=== PATIENT | male | born 1970 | race Caucasian/White ===

== ENCOUNTER 2022-03-23 14:04 | Emergency (ER) | payer BC, MEDICARE ==
[~2022-03-23] VITALS: Ht 162.6 cm; Wt 63.6 kg
[2022-03-23 14:12] VITALS: BP 142/97
[2022-03-23] MEDS ORDERED: TETanus/Pertussis (Acell)/Diphther VAC/PF (Tdap-Adult) 0.5ml syringe IMVAC ONE (15:30)
[2022-03-23] MEDS ORDERED: LIDOcaine 1% W/epiNEPHrine 1:100,000 20ml vial SQ ONE (15:30)
[2022-03-23] MEDS ORDERED: LIDOCAINE 2% (20mg/ml) w/EPINEPHRINE 1:200,000-PF 10 ML inj. SQ ONE (16:00)
[2022-03-23] MEDS ORDERED: LIDOCAINE 2%/EPI 1:100,000 inj. Multi-dose 20 ML VIAL SQ ONE (16:05)
[2022-03-23] MEDS ORDERED: cephalexin 500mg capsule PO ONE (17:00)
[2022-03-23] MEDS ORDERED: HYDR-3965 PO (17:02)
[2022-03-23] MEDS ORDERED: CEPH500C82 PO (17:02)
== END 2022-03-23 17:35 | disposition home or self-care (01) ==
LOC: ER 14:05
DX: S61.412A Laceration without foreign body of left hand, initial encounter (principal); S80.211A Abrasion, right knee, initial encounter; Z79.899 Other long term (current) drug therapy; W22.8XXA Striking against or struck by other objects, initial encounter; Y93.89 Activity, other specified; Y92.89 Other specified places as the place of occurrence of the external cause; Y99.8 Other external cause status
CPT/HCPCS: 12002; 73130; 90471; 90715; 99283; J7030; 99285; A6258; A6446; A6449